=== PATIENT | male | born 1970 | race Caucasian/White ===

== ENCOUNTER 2016-12-25 23:26 | Emergency (ER) | payer SELFPAY ==
[~2016-12-25 23:26] MED LIST: BACTRIM DS1 TAB PO; LORTAB 5-500 T1 EAC1 PO; MOTRIN600 MG PO; PERCOCET 10/31 UDTAB PO; PERCOCET 5/3251 TAB PO; TYLENOL500 MG PO
[2016-12-26] MEDS ORDERED: NORCO 5-325 TA1 EACH PO (04:25)
== END 2016-12-26 04:57 ==
LOC: EDMED 23:26
DX: K03.81 Cracked tooth (principal); Z88.5 Allergy status to narcotic agent